=== PATIENT | male | born 1980 | race Caucasian/White ===

== ENCOUNTER 2018-01-28 05:29 | Emergency (ER) | payer SELFPAY ==
--- NOTE | 2018-01-28 06:27 | NUR ---
PATIENT WAS CALLED SEVERAL TIMES TO BE TRIAGED BUT WAS NOT PRESENT. PATIENT WAS NOT TRIAGED OR SEEN BY ERMD
== END 2018-01-28 06:29 | disposition left against medical advice (07) ==
LOC: ER 05:29
DX: Z53.21 Procedure and treatment not carried out due to patient leaving prior to being seen by health care provider (principal)

== ENCOUNTER 2023-02-19 00:26 | Emergency (ER) | payer MEDICARE, OTHER ==
[~2023-02-19] VITALS: Ht 182.9 cm; Wt 208.7 kg
[2023-02-19 01:29] LABS: HEMATOCRIT 39.2 % (36.7-47.1); MEAN CORPUSCULAR HEMOGLOBIN 26.2 uug (23.8-33.4); MEAN CORPUSCULAR VOLUME 81.4 fL (73.0-96.2); PLATELET COUNT (AUTO) 238 K/uL (152-348)
[2023-02-19 01:32] LABS: BAND % (MANUAL) 2 % (0-10); LYMPHOCYTES % (MANUAL) 16 % (20-40)
[2023-02-19 01:33] LABS: MONOCYTES % (MANUAL) 14 % (2-10)
[2023-02-19 01:34] LABS: EOSINOPHILS % (MANUAL) 2 % (0-8); NEUTROPHILS % (MANUAL) 66 % (42-75)
[2023-02-19 01:42] LABS: CREATININE 1.3 mg/dL (0.6-1.3)
--- NOTE | 2023-02-19 01:45 | NUR ---
Patient refused ABG. notified.
[2023-02-19 01:48] LABS: BILIRUBIN,DIRECT 0.1 mg/dL (0.0-0.2); BILIRUBIN,TOTAL 0.5 mg/dL (0.2-1.0); TOTAL PROTEIN, SERUM 7.9 g/dL (6.4-8.2)
[2023-02-19 02:13] LABS: MAGNESIUM 1.7 mg/dL (1.8-2.4)
[2023-02-19] MEDS ORDERED: CYANOCOBALAMIN 1000 MCG/ML VIAL ONE (02:25)
--- NOTE | 2023-02-19 02:25 | NUR ---
Patient was provided with discharge paperwork and instructions. Patient proceeded to rip paperwork. notified.
[2023-02-19] MEDS ORDERED: CYANOCOBALAMIN 1000 MCG/ML VIAL IM ONE (02:30)
[2023-02-19 03:36] VITALS: BP 122/96
== END 2023-02-19 03:38 | disposition home or self-care (01) ==
LOC: ER 00:29
DX: E83.42 Hypomagnesemia (principal); E53.8 Deficiency of other specified B group vitamins; E66.01 Morbid (severe) obesity due to excess calories; Z68.44 Body mass index [BMI] 60.0-69.9, adult
CPT/HCPCS: 99284; 71045; 80076; 80048; 82607; 83735; 85025; 85007; J3420; 70030-TC; A4663

== ENCOUNTER 2023-03-11 21:53 | Emergency (ER) | payer MEDICARE, MEDICAID ==
[~2023-03-11] VITALS: Ht 182.9 cm; Wt 181.4 kg
[2023-03-11] MEDS ORDERED: CYANOCOBALAMIN 1000 MCG/ML VIAL IM ONE (22:30)
[2023-03-11] MEDS ORDERED: CYANOCOBALAMIN 1000 MCG/ML VIAL ONE (22:32)
[2023-03-11 23:33] VITALS: BP 138/76
== END 2023-03-11 23:33 | disposition home or self-care (01) ==
LOC: EDBD → MERGE 21:53 → ER 21:53
DX: E66.01 Morbid (severe) obesity due to excess calories (principal); E53.8 Deficiency of other specified B group vitamins; E83.42 Hypomagnesemia; Z68.43 Body mass index [BMI] 50.0-59.9, adult
CPT/HCPCS: 99283; 96372; J3420; A4663